=== PATIENT | male | born 2000 | race Caucasian/White ===

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

== ENCOUNTER 2025-05-20 15:13 | Emergency (ER) | payer OTHER, SELFPAY ==
[2025-05-20 15:14] VITALS: BP 142/85; PULSE 74; RESP 18; TEMP 36.7; O2SAT 98; BMI 22.2
--- NOTE | 2025-05-20 15:26 | EDS_ITS ---
HPI History of Present Illness Chief Complaint: Allergic Reaction Narrative Narrative: Patient is a 24-year-old male previously healthy presenting to emergency department for an allergic reaction. 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 He reports being stung about 4-6 times about 20 to 30 minutes ago. He denies any trouble breathing or any wheezing. Denies any GI symptoms including abdominal pain, nausea, vomiting, diarrhea. Denies any tongue, lip or throat swelling or tingling. He did not take any medication prior to arrival. Reports he does have urticaria [facility] Medical History (Updated 05/20/25 @ 17:[address] Pilar Tai MD) Asthma Medical History no medical history Home Medications ?Medication ?Instructions ?Recorded ?Last Taken ?Type albuterol sulfate 90 mcg/actuation 1 - 2 puff inhalati on Q4H PRN PRN 06/18/20 Unknown Rx aerosol inhaler Wheezing ##1 epinephrine 0.3 mg/0.3 mL 0.3 mg (0.3 mL) IM Q10M PRN PRN 05/20/25 Unknown Rx injection, auto-injector (EpiPen anaphylaxis #2 ea 2-Waqar) prednisone 50 mg tablet 50 mg PO DAILY #5 tabs 05/20 Unknown Rx Allergy/AdvReac Type Severity Reaction Status Date / Time No Known Allergies Allergy Verified 05/20/25 15:14 Surgical History no surgical history Social History Smoking Status: Current every day smoker tobacco type: cigarettes ROS ROS ED ROS Narrative see HPI EXAM Physical Exam Narrative Exam Narrative: Vital signs: Reviewed General: Alert and orientedx3. No acute distress HEENT: Head is normocephalic and atraumatic, sinuses nontender, pupils equal round and reactive. Nares are patent. Oropharynx and throat exams normal. No tongue, lip or oropharynx swelling. No erythema. Neck: Supple without lymphadenopathy nontender Cardiovascular: Regular rate and rhythm, no murmurs. No rubs or gallops. Normal S1 and S2 Respiratory: Clear to auscultation bilaterally. No wheezes, rales, rhonchi Abdominal: Soft and nontender. Normal bowel sounds. No guarding or rebound. Nonsurgical abdomen Extremities: No tenderness. No bruising. Normal range of motion. Normal sensation. Skin: 3 areas of urticaria. One on the right volar forearm, one on the left dorsal forearm and another on the left anterior shoulder. No diffuse urticaria noted. The rest of the physical exam is unremarkable Const Vital Signs: 05/20/25 15:14 05/20/25 16:13 05/20/25 17:00 Temperature 98.1 F Temperature Source Temporal Pulse Rate 74 65 54 L Respiratory Rate 18 16 17 Blood Pressure 142/85 H Blood Pressure Mean 104 Pulse Ox 98 100 98 Oxygen Delivery Method Room Air 05/20/25 17:46 Temperature 98.7 F Temperature Source Pulse Rate 67 Respiratory Rate 16 Blood Pressure 112/78 Blood Pressure Mean 89 Pulse Ox 100 Oxygen Delivery Method MDM MDM MDM Narrative Medical decision making narrative: Patient is a 24-year-old male presents emergency department for an allergic reaction. Patient was seen and examined. Vitals are stable. Patient resting bed comfortably no acute distress. Patient currently only has urticaria there is no GI, respiratory or oropharynx involvement at this time. Does not meet criteria for anaphylaxis. Will continue to monitor oral steroids, Pepcid and Benadryl given. Patient observed for about 2 hours and had no worsening of symptoms. The urticaria on his arms and shoulder actually improved. He is stable for outpatient management. He was given a 5-day course of steroids as well as instructed to take Zyrtec during the day and Benadryl at night for the next week. He was given a prescription for EpiPen's as well. Instructed that he use these and when to use them. Instructed to follow-up with primary care doctor soon as possible. Patient discharged from the Emergency Department. I do not feel that the patient's evaluation reveals any acute reason for admission at this time. I instructed them to either follow-up with their primary care physician or promptly return to the Emergency Department for reevaluation should symptoms worsen or new symptoms develop. I explained what symptoms would indicate the need to return to the emergency department. Shared decision making was used. The patient voiced understanding of the treatment plan and is agreeable with it. Clinical impression: Allergic reaction History & Record Review Discussion w/independent historian: Patient and Significant other Discharge Plan Triage Chief Complaint: Allergic Reaction ED Provider: Pilar Tai Dx/Rx/DC Orders Clinical Impression: Allergic reaction to bee sting Instructions: ED BEE STING General Allergic Rxn Prescriptions: New prednisone 50 mg tablet 50 mg PO DAILY Qty: 5 0RF epinephrine [EpiPen 2-Waqar] 0.3 mg/0.3 mL auto-injector 0.3 mg IM Q10M PRN PRN (Reason: anaphylaxis) Qty: 2 0RF Rx Instructions: for 2 doses No Action albuterol sulfate 1 INHALER inhaler 1 - 2 puff INHALATION Q4H PRN PRN (Reason: Wheezing) Qty: 1 0RF Primary Care Provider: Elder Boyer Referrals: Elder Boyer MD [Primary Care Provider, Medical] - 2 Days Activity Restrictions/Additional Instructions: Take the steroid 1 pill once a day for 5 days. Take Zyrtec during the day for the next 7 days for any itching. Take Benadryl at night for any itching. Follow-up with your primary care doctor soon as possible. I also sent a prescription for EpiPen's to use if needed if another allergic reaction occurs and you have trouble breathing or have nausea, vomiting, diarrhea associated with the skin changes. Your evaluation in the Emergency Department did not reveal any acute reason for admission. However, I want to emphasize that you may be early in the course of a disease process or illness even if it is not present. For this reason you should follow-up within 24 hours for reevaluation with either your primary care physician or if necessary back here in the Emergency Department. You should return to the Emergency Department immediately if your symptoms worsen or new symptoms develop. Print Language: Romansh Disposition Disposition: Home, Self Care Discharge Date/Time: 05/20/25 17:47
[2025-05-20 16:13] VITALS: PULSE 65; RESP 16; O2SAT 100
[2025-05-20 17:00] VITALS: PULSE 54; RESP 17; O2SAT 98
[2025-05-20 17:46] VITALS: BP 112/78; PULSE 67; RESP 16; TEMP 37.1; O2SAT 100
== END 2025-05-20 17:47 | disposition home or self-care (01) ==
PROVIDERS: Emergency Provider Student in an Organized Health Care Education/Training Program; PCP Family Medicine; Visit Provider Student in an Organized Health Care Education/Training Program
DX: T63.441A Toxic effect of venom of bees, accidental (unintentional), initial encounter (principal); J45.909 Unspecified asthma, uncomplicated; F17.210 Nicotine dependence, cigarettes, uncomplicated
CPT/HCPCS: 99283